=== PATIENT | male | born 1965 | race Asian ===

== ENCOUNTER 2020-09-20 22:41 | Inpatient (IN) | payer BC ==
[~2020-09-20] VITALS: Ht 167.6 cm; Wt 76.2 kg
[2020-09-20] MEDS ORDERED: FOLI0.4T6 PO (23:07)
[2020-09-20] MEDS ORDERED: INSLAN SQ (23:07)
[2020-09-20] MEDS ORDERED: ATOR10TA84 PO (23:07)
[2020-09-20] MEDS ORDERED: ASPI-1450 PO (23:07)
[2020-09-20] MEDS ORDERED: TRAZ-252 PO (23:07)
[2020-09-20] MEDS ORDERED: FURO20 PO (23:07)
[2020-09-20] MEDS ORDERED: PANT-31 PO (23:07)
[2020-09-20] MEDS ORDERED: AMLO-257 PO (23:07)
[2020-09-20 23:41] LABS: BASOPHILS % (AUTO) 0.2 % (0.0-2.0); EOSINOPHILS % (AUTO) 0.2 % (1.0-6.0); HEMATOCRIT 29.7 % (41-53); HEMOGLOBIN 9.9 g/dL (13.5-17.5); LYMPHOCYTES # (AUTO) 0.7 K/uL (1.0-4.8); LYMPHOCYTES % (AUTO) 6.9 % (22.0-44.0); MEAN CORPUSCULAR HEMOGLOBIN 33.6 pg (26.0-34.0); MEAN CORPUSCULAR HGB CONC 33.4 G/dL (31.0-37.0); MEAN CORPUSCULAR VOLUME 100 fL (80-100); MONOCYTES # (AUTO) 0.7 K/uL (0.1-1.0); MONOCYTES % (AUTO) 6.8 % (2.0-9.0); NEUTROPHILS # (AUTO) 8.7 K/uL (1.8-7.7); PLATELET COUNT (AUTO) 198 K/uL (150-450); RED BLOOD CELL COUNT(AUTO) 2.96 MIL/uL (4.50-5.90); RED CELL DISTRIBUTION WIDTH 13.6 % (11.5-14.5)
[2020-09-20 23:44] LABS: NEUTROPHILS % (AUTO) 85.9 % (40.0-70.0)
[2020-09-21 00:02] LABS: ALBUMIN 4.2 g/dL (3.4-5.0); BILIRUBIN,TOTAL 0.6 mg/dL (0.1-1.0); CALCIUM, TOTAL 9.3 mg/dL (8.8-10.5); CREATININE 3.48 mg/dL (0.60-1.30); POTASSIUM 4.4 mmol/L (3.5-5.1); TOTAL PROTEIN, SERUM 7.8 g/dL (6.4-8.2)
[2020-09-21 00:03] LABS: COVID AG,FIA SOURCE NASOPHARYNGEAL
[2020-09-21 00:20] LABS: APPEARANCE,URINE CLEAR (CLEAR); BILIRUBIN,URINE NEGATIVE (NEGATIVE); GLUCOSE, URINE (UA) NEGATIVE (NEGATIVE); KETONES,URINE NEGATIVE (NEGATIVE); LEUKOCYTE ESTERASE ,URINE NEGATIVE (NEGATIVE); NITRATE,URINE NEGATIVE (NEGATIVE); OCCULT BLOOD,URINE SMALL (NEGATIVE); PH,URINE 6.5 (5.0-8.0); PROTEIN,URINE NEGATIVE (NEGATIVE); UROBILINOGEN,URINE 0.2 mg/dL (<=1.0)
[2020-09-21 00:28] LABS: BACTERIA,URINE None Seen /HPF (None Seen); RBC,URINE 0-2 /HPF (0-2); WBC,URINE 0-2 /HPF (0-5)
[2020-09-21] MEDS ORDERED: LevETIRAcetam 500 MG TABLET PO ONE (01:00)
[2020-09-21] MEDS ORDERED: DEXAMETHASONE SOD PHOS 4 MG/ML 5 ML VIAL IVP ONE (01:00)
[2020-09-21] MEDS ORDERED: 0.9% SODIUM CHLORIDE 10 ML SYRINGE IVP PRN (02:00)
[2020-09-21] MEDS ORDERED: ACETAMINOPHEN 325 MG TABLET PO PRN ×2 (02:00→07:15)
[2020-09-21] MEDS ORDERED: BISACODYL 10 MG RECTAL RECTAL SUPPOSITORY PR PRN (07:15)
[2020-09-21] MEDS ORDERED: ONDANSETRON HCL 4 MG/2 ML VIAL IVP PRN (07:15)
[2020-09-21] MEDS ORDERED: DEXTROSE 50%-WATER 25 GM/50 ML SYRINGE IVP PRN (07:15)
[2020-09-21 10:45] VITALS: BP 116/68
[2020-09-21] MEDS: PANTOPRAZOLE SODIUM 40 MG/VIAL IVP SCH (13:42)
[2020-09-21] MEDS: DEXAMETHASONE SOD PHOS 4 MG/ML VIAL IVP SCH (13:42)
[2020-09-21] MEDS: DOCUSATE SODIUM 100 MG CAPSULE PO SCH ×2 (13:43→19:59)
[2020-09-21] MEDS: SODIUM CHLORIDE 0.9% 1,000 ML IV SCH (13:46)
[2020-09-21] MEDS: LevETIRAcetam 500 MG in DEXTROSE 5%-WATER 100 ML IV SCH ×2 (13:48→19:59)
[2020-09-21] MEDS: HEPARIN SODIUM,PORCINE 5,000 UNITS/ML VIAL SQ SCH ×2 (13:57→19:59)
[2020-09-21] MEDS ORDERED: SODIUM CHLORIDE 0.9% 250 ML IV ONE (14:00)
[2020-09-21 15:57] VITALS: BP 119/76
[2020-09-21 19:00] LABS: GLUCOMETER DEV NAME(LOC) 5N.3; GLUCOSE,POINT OF CARE 126 MG/DL (70-110)
[2020-09-21 20:30] VITALS: BP 121/79
[2020-09-21] MEDS: INSULIN LISPRO 100 UNITS/ML SQ PRN (21:04)
[2020-09-22 00:12] VITALS: BP 120/76
[2020-09-22 01:09] LABS: GLUCOMETER DEV NAME(LOC) 5S.2B; GLUCOSE,POINT OF CARE 190 MG/DL (70-110)
[2020-09-22] MEDS: SODIUM CHLORIDE 0.9% 1,000 ML IV SCH ×2 (06:09→19:56)
[2020-09-22 06:46] LABS: PROTHROMBIN TIME 10.4 SEC (9.4-11.6)
[2020-09-22 06:49] LABS: BASOPHILS % (AUTO) 0.4 % (0.0-2.0); EOSINOPHILS % (AUTO) 0.2 % (1.0-6.0); HEMATOCRIT 27.3 % (41-53); HEMOGLOBIN 9.3 g/dL (13.5-17.5); LYMPHOCYTES % (AUTO) 12.9 % (22.0-44.0); MEAN CORPUSCULAR HEMOGLOBIN 34.4 pg (26.0-34.0); MEAN CORPUSCULAR HGB CONC 33.9 G/dL (31.0-37.0); MEAN CORPUSCULAR VOLUME 101 fL (80-100); MONOCYTES # (AUTO) 0.8 K/uL (0.1-1.0); MONOCYTES % (AUTO) 10.9 % (2.0-9.0); NEUTROPHILS # (AUTO) 5.9 K/uL (1.8-7.7); NEUTROPHILS % (AUTO) 75.6 % (40.0-70.0); PLATELET COUNT (AUTO) 214 K/uL (150-450); RED CELL DISTRIBUTION WIDTH 13.5 % (11.5-14.5)
[2020-09-22 06:52] LABS: ALBUMIN 3.4 g/dL (3.4-5.0); BILIRUBIN,TOTAL 0.3 mg/dL (0.1-1.0); CALCIUM, TOTAL 8.8 mg/dL (8.8-10.5); CREATININE 3.21 mg/dL (0.60-1.30); POTASSIUM 4.2 mmol/L (3.5-5.1); TOTAL PROTEIN, SERUM 7.2 g/dL (6.4-8.2)
[2020-09-22 07:29] VITALS: BP_SYST 111; BP_SYST 118; BP_DIAS 69; BP_DIAS 71
[2020-09-22 08:06] LABS: GLUCOMETER DEV NAME(LOC) 5N.1C; GLUCOSE,POINT OF CARE 126 MG/DL (70-110)
[2020-09-22] MEDS: LevETIRAcetam 500 MG in DEXTROSE 5%-WATER 100 ML IV SCH ×2 (08:33→20:18)
[2020-09-22] MEDS: PANTOPRAZOLE SODIUM 40 MG/VIAL IVP SCH (08:34)
[2020-09-22] MEDS: DEXAMETHASONE SOD PHOS 4 MG/ML VIAL IVP SCH ×2 (08:34→20:18)
[2020-09-22] MEDS: HEPARIN SODIUM,PORCINE 5,000 UNITS/ML VIAL SQ SCH ×2 (08:35→20:18)
[2020-09-22] MEDS: DOCUSATE SODIUM 100 MG CAPSULE PO SCH ×2 (08:35→20:18)
[2020-09-22 11:01] VITALS: BP 104/48
[2020-09-22 12:48] LABS: GLUCOMETER DEV NAME(LOC) 5S.1; GLUCOSE,POINT OF CARE 108 MG/DL (70-110)
[2020-09-22] MEDS ORDERED: FOLI-130 PO (17:00)
[2020-09-22] MEDS ORDERED: GABA-529 PO (17:00)
[2020-09-22] MEDS: INSULIN LISPRO 100 UNITS/ML SQ PRN (17:24)
[2020-09-22 20:00] VITALS: BP 113/66
[2020-09-22 20:24] LABS: GLUCOMETER DEV NAME(LOC) 5N.1C; GLUCOSE,POINT OF CARE 200 MG/DL (70-110)
[2020-09-22] MEDS: ETHYL ALCOHOL 62% ANTISEPTIC NASAL INHALANT 0.6 ML AMPUL NASAL SCH (21:40)
[2020-09-22 22:05] LABS: GLUCOSE,POINT OF CARE 165 MG/DL (70-110)
[2020-09-23] VITALS: BP 102/56
[2020-09-23 04:00] VITALS: BP 137/82
[2020-09-23 08:00] VITALS: BP 121/94
[2020-09-23] MEDS: LevETIRAcetam 500 MG in DEXTROSE 5%-WATER 100 ML IV SCH ×2 (08:05→20:01)
[2020-09-23] MEDS: SODIUM CHLORIDE 0.9% 1,000 ML IV SCH ×2 (08:05→17:59)
[2020-09-23] MEDS: DOCUSATE SODIUM 100 MG CAPSULE PO SCH ×2 (08:06→20:02)
[2020-09-23] MEDS: DEXAMETHASONE SOD PHOS 4 MG/ML VIAL IVP SCH ×3 (08:06→20:02)
[2020-09-23] MEDS: ETHYL ALCOHOL 62% ANTISEPTIC NASAL INHALANT 0.6 ML AMPUL NASAL SCH ×2 (08:06→20:02)
[2020-09-23] MEDS: HEPARIN SODIUM,PORCINE 5,000 UNITS/ML VIAL SQ SCH ×2 (08:06→20:02)
[2020-09-23] MEDS: PANTOPRAZOLE SODIUM 40 MG/VIAL IVP SCH (08:06)
[2020-09-23 11:14] LABS: GLUCOSE,POINT OF CARE 117 MG/DL (70-110)
[2020-09-23 11:14] LABS: GLUCOSE,POINT OF CARE 99 MG/DL (70-110)
[2020-09-23] MEDS: INSULIN LISPRO 100 UNITS/ML SQ PRN ×2 (11:34→21:23)
[2020-09-23 12:00] VITALS: BP 106/61
[2020-09-23 12:36] LABS: GLUCOSE,POINT OF CARE 185 MG/DL (70-110)
[2020-09-23 16:00] VITALS: BP 118/77
[2020-09-23 18:40] LABS: GLUCOSE,POINT OF CARE 177 MG/DL (70-110)
[2020-09-23 20:00] VITALS: BP 112/66
[2020-09-24] VITALS: BP 123/82
[2020-09-24 00:41] LABS: GLUCOSE,POINT OF CARE 197 MG/DL (70-110)
[2020-09-24 04:00] VITALS: BP 116/76
[2020-09-24 05:43] LABS: EOSINOPHILS % (AUTO) 0 % (1.0-6.0); HEMATOCRIT 27.3 % (41-53); HEMOGLOBIN 9.4 g/dL (13.5-17.5); LYMPHOCYTES % (AUTO) 12.5 % (22.0-44.0); MEAN CORPUSCULAR HEMOGLOBIN 34.7 pg (26.0-34.0); MEAN CORPUSCULAR HGB CONC 34.3 G/dL (31.0-37.0); MEAN CORPUSCULAR VOLUME 101 fL (80-100); MONOCYTES # (AUTO) 0.5 K/uL (0.1-1.0); MONOCYTES % (AUTO) 6.5 % (2.0-9.0); NEUTROPHILS # (AUTO) 6.6 K/uL (1.8-7.7); PLATELET COUNT (AUTO) 195 K/uL (150-450); RED BLOOD CELL COUNT(AUTO) 2.69 MIL/uL (4.50-5.90); RED CELL DISTRIBUTION WIDTH 13.4 % (11.5-14.5)
[2020-09-24 05:57] LABS: CALCIUM, TOTAL 8.7 mg/dL (8.8-10.5); CREATININE 2.57 mg/dL (0.60-1.30); POTASSIUM 4.3 mmol/L (3.5-5.1)
[2020-09-24] MEDS: SODIUM CHLORIDE 0.9% 1,000 ML IV SCH (06:48)
[2020-09-24 08:00] VITALS: BP 146/76
[2020-09-24] MEDS: ETHYL ALCOHOL 62% ANTISEPTIC NASAL INHALANT 0.6 ML AMPUL NASAL SCH (08:02)
[2020-09-24] MEDS: LevETIRAcetam 500 MG in DEXTROSE 5%-WATER 100 ML IV SCH (08:02)
[2020-09-24] MEDS: PANTOPRAZOLE SODIUM 40 MG/VIAL IVP SCH (08:02)
[2020-09-24] MEDS: DOCUSATE SODIUM 100 MG CAPSULE PO SCH (08:03)
[2020-09-24] MEDS: DEXAMETHASONE SOD PHOS 4 MG/ML VIAL IVP SCH (08:03)
[2020-09-24] MEDS: HEPARIN SODIUM,PORCINE 5,000 UNITS/ML VIAL SQ SCH (08:03)
[2020-09-24 08:48] LABS: GLUCOSE,POINT OF CARE 109 MG/DL (70-110)
[2020-09-24] MEDS: INSULIN LISPRO 100 UNITS/ML SQ PRN (11:52)
[2020-09-24 12:00] VITALS: BP 120/75
[2020-09-24 12:16] LABS: GLUCOSE,POINT OF CARE 163 MG/DL (70-110)
== END 2020-09-24 13:45 | disposition home or self-care (01) | DRG 54 ==
LOC: EMS 22:41 → 5S 09-21 02:00 → ICU 09-22 18:47
PROVIDERS: ADMIT Internal Medicine; ATTEND Internal Medicine
DX: C79.31 Secondary malignant neoplasm of brain (principal); G93.41 Metabolic encephalopathy; G93.6 Cerebral edema; N18.5 Chronic kidney disease, stage 5; I12.0 Hypertensive chronic kidney disease with stage 5 chronic kidney disease or end stage renal disease; N17.9 Acute kidney failure, unspecified; Z85.118 Personal history of other malignant neoplasm of bronchus and lung; Z86.74 Personal history of sudden cardiac arrest; D63.1 Anemia in chronic kidney disease; Z87.891 Personal history of nicotine dependence; E78.5 Hyperlipidemia, unspecified; E11.22 Type 2 diabetes mellitus with diabetic chronic kidney disease; K21.9 Gastro-esophageal reflux disease without esophagitis; E78.00 Pure hypercholesterolemia, unspecified; Z20.822 Contact with and (suspected) exposure to COVID-19; Z79.82 Long term (current) use of aspirin; Z79.899 Other long term (current) drug therapy; Z79.4 Long term (current) use of insulin
CPT/HCPCS: 70450; 70551; 71045; 80048; 80053; 81001; 82962; 83605; 84484; 85025; 85610; 85730; 87081; 87426; 92610; 93005; 93306; 99291; C9113; G0378; J0712; J1100; J1644; J7030; J7050; J7060; 36415-L1; 36415-TC